=== PATIENT | male | born 1995 ===

== ENCOUNTER 2020-01-22 06:00 | Outpatient (RCR) | payer BC, SELFPAY | END 2020-02-06 23:59 | disposition home or self-care (01) | LOC: SPT 06:00 | PROVIDERS: PCP Pediatrics; Referring Provider Urology; Visit Provider Urology | DX: M75.52 Bursitis of left shoulder (principal) | CPT/HCPCS: 97110; 97161 ==

== ENCOUNTER 2020-02-07 04:40 | Outpatient (RCR) | payer BC, SELFPAY | END 2020-02-28 23:00 | disposition home or self-care (01) | LOC: SPT 04:40 | PROVIDERS: PCP Pediatrics; Referring Provider Urology; Visit Provider Urology | DX: M75.52 Bursitis of left shoulder (principal) | CPT/HCPCS: 97110 ==